=== PATIENT | male | born 1970 | race Caucasian/White ===

== ENCOUNTER → 2016-07-01 | Outpatient (CLI) | payer BC ==
--- NOTE | 2016-07-01 08:02 | MR ---
EXAMINATION TYPE: MR brain and iac wo/w con DATE OF EXAM: 07/01/2016 7:42 AM COMPARISON: NONE HISTORY: H93.1 Tinnitus,ringing in ears TECHNIQUE: Multiplanar and multispin-echo imaging of the brain was performed both before and after the administr ation of contrast. High-resolution images are obtained of the internal auditory canals performed uti lizing 17 mL intravenous MultiHance contrast. The ventricles, basal cisterns and sulci overlying the cerebral convexities are within normal limits. There is no evidence for midline shift or mass effect. Acute intracranial hemorrhage or extra-axial collection is not evident. There are no abnormal areas of increased or decreased signal intensity within the brain parenchyma. High-resolution imaging of the internal auditory canals fails demonstrate evidence for an enhancing a coustic schwannoma or cerebellopontine cistern angle mass. Following contrast administration, there is no evidence for pathologic enhancement or enhancing mass. The paranasal sinuses and mastoid air cells are well-aerated. Minimal mucosal thickening of the maxil bertha sinuses and ethmoid air cells. IMPRESSION: 1. No evidence of acoustic schwannoma or cerebellopontine angle mass.
--- NOTE | 2016-07-01 19:22 | MR ---
EXAMINATION TYPE: MR lumbar spine wo con DATE OF EXAM: 07/01/2016 7:25 AM COMPARISON: NONE HISTORY: Cervicalgia, Lumbago TECHNIQUE: T1 and T2 axial and sagittal images of the lumbar spine are submitted. FINDINGS: There is no abnormal signal seen within the visualized spinal cord or paraspinal soft tissu es. At L1-2 there is no disc herniation or canal stenosis. No foraminal encroachment. At L2-3 there is mild hypertrophic change of the facets but no disc herniation or canal stenosis. No foraminal encroachment. At L3-4 there is hypertrophic change of the facets and uncovertebral joints to a moderate degree. Mil d circumferential disc bulging with mild bilateral foraminal encroachment. No canal stenosis or focal herniation. At L4-5 there is moderate hypertrophic change of the facets and ligamentum flavum. Mild circumferenti al disc bulging. No canal stenosis. Bulging greater laterally to the right with mild right-sided fora naresh encroachment. At L5-S1 there is no disc herniation or canal stenosis. Mild to moderate facet arthropathy. Neural fo ramina are patent. IMPRESSION: 1. Disc bulging and facet arthropathy with the most marked findings at L3-L4 and L4-L5 with foraminal encroachment as discussed above. 2. No focal herniation or canal stenosis. EXAMINATION TYPE: MR cervical spine wo con DATE OF EXAM: 07/01/2016 7:25 AM COMPARISON: NONE HISTORY: Cervicalgia, Lumbago TECHNIQUE: T1 sagittal and coronal, T2 sagittal, and gradient echo axial views of the cervical spine are submitted. FINDINGS: The cranial cervical junction is preserved. There is no abnormal signal seen within the sp inal cord or paraspinal soft tissues. At C2-3 there is no disc herniation or canal stenosis. No foraminal encroachment. At C3-4 there is uncovertebral joint and right paracentral disc bulging with mild effacement of the r ight neural foramina. No nerve root contact or canal stenosis. At C4-5 there is disc desiccation. Mild bilateral uncovertebral joint hypertrophy. No disc herniation . Mild right-sided foraminal encroachment. At C5-6 there is mild degenerative disc disease with right paracentral disc bulging and uncovertebral joint hypertrophy with moderate right-sided foraminal encroachment. No definite nerve root contact. At C6-7 there is no disc herniation or canal stenosis. There is bilateral uncovertebral joint hypertr ophy with mild bilateral foraminal encroachment. At C7-T1 there is no disc herniation or canal stenosis. No foraminal encroachment. IMPRESSION: 1. Uncovertebral joint hypertrophy on the right with right paracentral disc bulging C3-C4 and more p ronounced at C5-C6 with right-sided foraminal encroachment but no definite nerve root contact.
== END | disposition home or self-care (01) ==
LOC: RADMRIMAIN 06:10
PROVIDERS: ATTEND Psychiatry & Neurology Neurology
DX: M51.26 Other intervertebral disc displacement, lumbar region (principal); M46.97 Unspecified inflammatory spondylopathy, lumbosacral region; M50.21 Other cervical disc displacement, high cervical region; M53.82 Other specified dorsopathies, cervical region; H93.19 Tinnitus, unspecified ear
CPT/HCPCS: 72141; 72148; 70553; A9577

== ENCOUNTER 2024-01-02 09:04 | Day surgery (SDC) | payer BC ==
[2024-01-02 09:27] VITALS: RESP 16; TEMP 97.5
[2024-01-02] MEDS: LACTATED RINGERS 1,000 ML IV SCH (09:35)
[2024-01-02] MEDS: IV FLUID CONTINUATION 1,000 ML IV ONE (09:35)
[2024-01-02] MEDS ORDERED: PROPOFOL 10 MG/ML 20 ML VIAL IV ONE (10:29)
--- NOTE | 2024-01-02 10:46 | P.PCN ---
Date of Procedure: 01/02/24 Procedure(s) Performed: BRIEF HISTORY: Patient is a 53-year-old pleasant white [place] scheduled for an elective colonoscopy as a part of screening for colon cancer. PROCEDURE PERFORMED: Colonoscopy snare polypectomy. PREOPERATIVE DIAGNOSIS: Screening for colon cancer. IV sedation per Anesthesia. PROCEDURE: After informed consent was obtained, the patient, was brought into the endoscopy unit. IV sedation was administered by Anesthesia under continuous monitoring. Digital rectal examination was normal. Initially the Olympus CF-160 flexible video colonoscope was then inserted in the rectum, gradually advanced into the cecum without any difficulty. Careful examination was performed as the scope was gradually being withdrawn. Ileocecal valve and the appendiceal orifice were visualized and appeared normal. Prep was excellent. Mucosa of the cecum, ascending colon, transverse colon, descending colon, normal. The sigmoid colon there was a 1 cm polyp that was removed by snare polypectomy. Rest of the sigmoid colon, and rectum appeared normal. Retroflexion was performed in the rectum and no lesions were seen. The patient tolerated the procedure well. IMPRESSION: 1 cm sigmoid colon polyp status post polypectomy Rest of the colon appeared normal RECOMMENDATIONS: Findings of this examination were discussed with the patient as well as his family. He was advised to follow-up with the biopsy results. If the biopsy reveals adenoma he can have repeat colonoscopy in 3 years.
[2024-01-02 11:21] VITALS: BP 110/71; PULSE 58
== END 2024-01-02 12:10 ==
LOC: ORWHC2ENDO 09:04
PROVIDERS: ATTEND Internal Medicine Gastroenterology
DX: Z12.11 Encounter for screening for malignant neoplasm of colon (principal); K63.5 Polyp of colon; F32.A Depression, unspecified; Z79.899 Other long term (current) drug therapy
CPT/HCPCS: 88305; 45385; J2704